=== PATIENT | female | born 1985 | race Caucasian/White ===

== ENCOUNTER 2017-01-24 19:20 | Emergency (ER) | payer MEDICAID, OTHER ==
--- NOTE | 2017-01-24 20:09 | C.PDOC ---
History Of Present Illness 31 year old female presents to the ED with complaints of heroin withdrawal for the past 2 days. Patient states her last use was 3 days ago and notes having associated abdominal pain, generalized body aches, headache, nausea, and diarrhea. Denies fever, tremors, vomiting, or any other complaints at this time. Time Seen by Provider: 01/24/17 19:51 Chief Complaint (Nursing): Psychiatric Evaluation History Per: Patient History/Exam Limitations: no limitations Onset/Duration Of Symptoms: Days Current Symptoms Are (Timing): Still Present Suicide/Self Injury Attempted (Context): None Severity: Mild Past Medical History Reviewed: Historical Data, Nursing Documentation, Vital Signs Vital Signs: Last Vital Signs Temp 97.4 F L 01/24/17 19:23 Pulse 78 01/24/17 19:23 Resp 16 01/24/17 19:23 BP 157/98 H 01/24/17 19:23 Pulse Ox 100 01/24/17 20:12 - Medical History PMH: Anxiety, Bipolar Disorder, Depression, Mitral Valve Prolapse - Smallable Procedures DETOXIFICATION SERVICES FOR SUBSTANCE ABUSE TREATMENT (07/24/16) Family History: States: Unknown Family Hx - Social History Hx Alcohol Use: No Hx Substance Use: Yes - Immunization History Hx Tetanus Toxoid Vaccination: No Hx Influenza Vaccination: No Hx Pneumococcal Vaccination: No Review Of Systems Except As Marked, All Systems Reviewed And Found Negative. Constitutional: Positive for: Other (+Body aches). Negative for: Fever, Chills Cardiovascular: Negative for: Chest Pain Respiratory: Negative for: Shortness of Breath Gastrointestinal: Positive for: Nausea, Abdominal Pain, Diarrhea. Negative for : Vomiting Neurological: Positive for: Headache Physical Exam - Physical Exam Appears: Non-toxic, No Acute Distress Skin: Normal Color, Warm, Dry Head: Atraumatic, Normacephalic Eye(s): bilateral: Normal Inspection Oral Mucosa: Moist Chest: Symmetrical Cardiovascular: Rhythm Regular Respiratory: Normal Breath Sounds, No Accessory Muscle Use, No Rales, No Rhonchi , No Wheezing Gastrointestinal/Abdominal: Soft, No Tenderness, No Distention, No Guarding, No Rebound Extremity: Normal ROM, No Deformity Neurological/Psych: Oriented x3, Normal Speech, Normal Cognition, Other (No tremors) ED Course And Treatment O2 Sat by Pulse Oximetry: 100 (Room air) Pulse Ox Interpretation: Normal Progress Note: Patient treated with Catapres. Case discussed with the crisis patient care who agreed to evaluate the patient. There are no available detox beds at this time. Patient given information concerning detox programs and procedure for pre-screening. Disposition - Disposition Disposition: HOME/ ROUTINE Disposition Time: 20:21 Condition: STABLE Instructions: Narcotic Abuse (ED) - Clinical Impression Clinical Impression: Opiate dependence - Scribe Statement The provider has reviewed the documentation as recorded by the Scribe Eloy Acevedo. Provider Attestation: All medical record entries made by the Marianibe were at my direction and personally dictated by me. I have reviewed the chart and agree that the record accurately reflects my personal performance of the history, physical exam, medical decision making, and the department course for this patient. I have also personally directed, reviewed, and agree with the discharge instructions and disposition.
[2017-01-24 20:41] VITALS: BP 145/70; PULSE 89; RESP 20; TEMP 97.8; O2SAT 98
== END 2017-01-24 20:40 | disposition home or self-care (01) ==
LOC: C.ER 19:20
DX: F11.20 Opioid dependence, uncomplicated (principal)